=== PATIENT | male | born 1990 | race Caucasian/White ===

== ENCOUNTER 2022-11-17 09:50 | Emergency (ER) | payer MEDICAID, OTHER ==
[~2022-11-17] VITALS: Ht 170.2 cm; Wt 62.0 kg
[2022-11-17 09:57] VITALS: BP 150/88; PULSE 83; RESP 20; TEMP 98; O2SAT 99
[2022-11-17 12:09] LABS: BASOPHILS % 0.5 % (0.0-2.0); EOSINOPHILS % 1.5 % (0.0-5.0); HEMATOCRIT. 47.5 % (42.0-52.0); HEMOGLOBIN. 16.4 g/dL (14.0-18.0); LYMPHOCYTES % 16.6 % (20.0-50.0); MEAN CORPUSCULAR HEMOGLOBIN 30.7 pg (28.0-32.0); MEAN CORPUSCULAR VOLUME 89.1 fL (80.0-94.0); MEAN PLATELET VOLUME 7.7 fl (7.4-10.4); MONOCYTES % 6.2 % (2.0-8.0); NEUTROPHILS % 75.2 % (40.0-76.0); PLATELET 304 x1000/uL (130-400); RED BLOOD CELL COUNT 5.33 mill/uL (4.7-6.1); RED CELL DISTRIBUTION WIDTH 13.1 % (11.6-14.6)
[2022-11-17 12:20] LABS: CHLORIDE 108 mEq/L (98-107)
[2022-11-17 14:10] LABS: CLARITY URINE CLEAR (CLEAR); COLOR URINE YELLOW (YELLOW); KETONES URINE NEGATIVE (NEGATIVE); LEUKOCYTE ESTERASE URINE NEGATIVE (NEGATIVE); NITRITE URINE NEGATIVE (NEGATIVE); OCCULT BLOOD URINE NEGATIVE (NEGATIVE); PROTEIN URINE NEGATIVE (NEGATIVE); SPECIFIC GRAVITY URINE 1.012 (1.005-1.030); UROBILINOGEN URINE 0.2 E.U./dL (0.2-1.0)
== END 2022-11-17 15:26 | disposition home or self-care (01) ==
LOC: ER 10:07
DX: U07.1 COVID-19 (principal)
CPT/HCPCS: 99285; 71045; 87426; 80053; 81003; 83880; 84443; 85025; 84484; 36415; 93005; C9803